=== PATIENT | male | born 1950 | race Two or more races ===

== ENCOUNTER 2023-10-18 10:30 | Outpatient (CLI) | payer OTHER ==
[~2023-10-18 10:30] MED LIST: ALLOPURINOL100 MG PO; GLIPIZIDE ER10 MG PO; HYDRALAZINE HCL25 MG PO; LANTUS SOL100 UNIT/1 SUBCUTANEO; LISINOPRIL40 MG PO; OMEPRAZOLE20 MG PO; VITAMIN D350 MCG PO
== END 2023-10-18 12:44 | disposition home or self-care (01) ==
LOC: RAD 10:30
PROVIDERS: ATTEND Surgery Surgery of the Hand
DX: Z01.818 Encounter for other preprocedural examination (principal)

== ENCOUNTER 2023-10-20 05:00 | Day surgery (SDC) | payer OTHER ==
[~2023-10-20] VITALS: Ht 182.9 cm; Wt 98.9 kg
[2023-10-20] MEDS ORDERED: CEFAZOLIN SODIUM 1,000 MG VIAL ONE (08:07)
[2023-10-20] MEDS ORDERED: TRIAMCINOLONE ACETONIDE 40 MG/ML VIAL IJ ONE (09:00)
[2023-10-20] MEDS ORDERED: CEFAZOLIN SODIUM 1,000 MG VIAL IV ONE (09:00)
[2023-10-20] MEDS ORDERED: TRIAMCINOLONE ACETONIDE 40 MG/ML VIAL ONE (09:00)
== END 2023-10-20 11:30 | disposition home or self-care (01) ==
LOC: CIR.AMB 05:00
PROVIDERS: ATTEND Surgery Surgery of the Hand
DX: M65.841 Other synovitis and tenosynovitis, right hand (principal); Z20.822 Contact with and (suspected) exposure to COVID-19